=== PATIENT | male | born 1980 | race African-American/Black ===

== ENCOUNTER 2017-02-14 10:40 | Emergency (ER) | payer SELFPAY ==
[~2017-02-14] VITALS: Ht 175.3 cm; Wt 82.1 kg
[~2017-02-14 10:40] MED LIST: MOTRIN800 MG PO; NOHOMEMEDS; VENTOLIN HFA18 GM IH
[2017-02-14] MEDS ORDERED: GRISEOFULVIN500 MG PO (12:59)
[2017-02-14 13:15] VITALS: BP 112/79
== END 2017-02-14 13:16 | disposition home or self-care (01) ==
LOC: EME 10:40
DX: B35.0 Tinea barbae and tinea capitis (principal); J45.909 Unspecified asthma, uncomplicated
CPT/HCPCS: 99281; 99283